=== PATIENT | female | born 1970 | race Caucasian/White ===

== ENCOUNTER 2017-02-17 14:12 | Outpatient (CLI) | payer MEDICARE ==
[2017-02-17 15:17] VITALS: BMI 22.3
[2017-02-17 15:30] LABS: % SATURATION 2 % (15-55); IRON 7 ug/dl (35-150); TOTAL IRON BIND CAPACITY 339 ug/dl (260-445); UNSAT IRON BIND CAPACITY 332 ug/dl (150-375)
[2017-02-17 15:46] LABS: FERRITIN 3 ng/mL (3-244); LDH 127 U/L (81-234)
--- NOTE | 2017-02-17 16:24 | NUR ---
1545-IV SITED TO LEFT HAND X 1 20 ANGIOCATH. 1610-BLOOD TRANSFUSION 1ST UNIT UP TO INFUSE AT 100CC/HR PER PUMP. 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
--- NOTE | 2017-02-17 17:28 | NUR ---
1610 1ST UNIT BLOOD CHECKED AT BEDSIDE BY THIS NURSE AND ERROL PINEDO RN, INITATED BY ALARIS PUMP AT 50/CC/HR. DATASCOPE MONITORING. SPOUSE AT SIDE. CALL LIGHT AT BEDSIDE. 1625. DENIES PROBLEMS, IV PATENT. RATE INCREASED TO 125/CC/HR. 1640 DENIES PROBLEMS, RATE INCREASED TO 200/CC/HR 1710 SUPPER SERVED. BLOOD GOING WELL. DENIES PROBLEMS.
--- NOTE | 2017-02-17 18:10 | NUR ---
1809 ATE 100% REG DIET. BLOOD GOING WELL, NEAR COMPLETEION, SPOUSE AT SIDE.
--- NOTE | 2017-02-17 18:45 | NUR ---
182 1ST UNIT BLOOD COMPLETED LINE BEING FLUSHED WITH NS 1834 2ND UNIT BLOOD CHECKED AT BEDSIDE BY THIS NURSE AND KHUSHBOO BELTRAN RN, INITIATED BY ALARIS PUMP AT 50/CC/HR. SPOUSE AT SIDE. IV SITE PATENT.
--- NOTE | 2017-02-17 18:59 | NUR ---
1849 DENIES PROBLEMS, IV SITE PATENT, RATE INCREASED TO 150/CC/HR.
--- NOTE | 2017-02-17 19:15 | NUR ---
1904 IV SITE PATENT, DENIES PROBLEMS, RATE INCREASED TO 225/CC/HR.
--- NOTE | 2017-02-17 20:12 | NUR ---
1934 LEFT HAND/ARM LARGER THAN RIGHT ARM. PT. DENIES PAIN. BLOOD STOPPED. [facility] FOR [facility] FOR DR. ARGUELLO, CALLED REPORTED, IV SITE PATENT RESITED TO RIGHT ARM WITH 20G JELCO. PT. LAYING ON LEFT SIDE, I ASKED PT TO TURN OFF LEFT SIDE. 2015 REPORT PHONED TO ANIBAL ESPINOSA, TO 2231 BY WC.
[2017-02-18 10:26] LABS: PATH REVIEW PERIPHERAL SMEAR REVIEWED
== END 2017-02-17 21:45 | disposition home or self-care (01) ==
LOC: D.OPS 14:12 → D.MS 20:20
PROVIDERS: Family Medicine
DX: D58.2 Other hemoglobinopathies (principal)

== ENCOUNTER → 2017-06-03 12:53 | Outpatient (CLI) | payer MEDICARE | END | disposition home or self-care (01) | LOC: D.MAMMO 11:00 | DX: Z12.31 Encounter for screening mammogram for malignant neoplasm of breast (principal) ==

== ENCOUNTER → 2017-07-02 16:44 | Outpatient (CLI) | payer MEDICARE | END | disposition home or self-care (01) | LOC: D.MAMMO 09:30 | DX: R92.8 Other abnormal and inconclusive findings on diagnostic imaging of breast (principal) ==

== ENCOUNTER → 2018-01-12 16:53 | Outpatient (CLI) | payer MEDICARE ==
[~2018-01-12 16:53] MED LIST: HYDROCODONE-APA1 TAB PO; LEVOTHYROXINE112 MCG PO; OMEPRAZOLE20 M1 PO
== END | disposition home or self-care (01) ==
LOC: D.MAMMO 13:30
DX: R92.8 Other abnormal and inconclusive findings on diagnostic imaging of breast (principal)

== ENCOUNTER → 2018-01-20 07:40 | Outpatient (CLI) | payer MEDICARE | END | disposition home or self-care (01) | LOC: D.CT 07:40 | DX: R16.0 Hepatomegaly, not elsewhere classified (principal) ==

== ENCOUNTER 2018-01-26 06:51 | Outpatient (CLI) | payer BC ==
[~2018-01-26] VITALS: Ht 163.8 cm; Wt 55.0 kg
[2018-01-26 07:50] LABS: BASOPHILS 0.2 % (0-2); EOSINOPHILS 4.1 % (0-7); HEMOGLOBIN 10.7 g/dL (12-16); IMMATURE GRANULOCYTES 0.2 % (0-5); LYMPHOCYTES 11.9 % (15-50); MCHC 28.9 g/dL (31.0-37.0); MCV 83.1 fL (80.0-100.0); MEAN PLATELET VOLUME 9.4 fL (7.4-10.4); NEUTROPHILS 75.6 % (40-80); PLATELET COUNT 277 10x3/uL (130-400); RBC 4.45 10x6/uL (4.00-5.40); RDW 16.4 % (11.5-14.5); WBC 6.3 10x3/uL (4.8-10.8)
[2018-01-26 08:02] LABS: CALC OSMOLALITY 278 mosm/kg (275-300); CALCIUM 8.8 mg/dL (8.5-10.1); CARBON DIOXIDE 29.1 mmol/L (21.0-32.0); CHLORIDE - SERUM 104 mmol/L (98-107); CREATININE - SERUM 0.7 mg/dL (0.6-1.3); GLUCOSE 88 mg/dL (74-106); POTASSIUM - SERUM 3.7 mmol/L (3.5-5.1); SODIUM 141 mmol/L (136-145); UREA NITROGEN 10 mg/dL (7-18); eGFR NON AFRICAN AMERICAN > 90 mL/min (90-120)
[2018-01-26 08:12] LABS: APTT 31.3 SECONDS (22.8-39.4); INR 1.14 (0.85-1.17); PROTIME 14.2 SECONDS (11.6-15.0)
[2018-01-26] MEDS ORDERED: OMEPRAZOLE20 M1 PO (08:28)
[2018-01-26] MEDS ORDERED: LEVOTHYROXINE112 MCG PO (08:29)
[2018-01-26 08:33] VITALS: BP 135/89; Ht 163.8 cm; Wt 55.0 kg
== END 2018-01-26 14:45 | disposition home or self-care (01) ==
LOC: D.OPS 06:51 → D.CT 09:00 → D.OPS 09:30
PROVIDERS: Radiology Diagnostic Radiology
DX: R16.0 Hepatomegaly, not elsewhere classified (principal); Z88.0 Allergy status to penicillin; C16.9 Malignant neoplasm of stomach, unspecified; Z01.812 Encounter for preprocedural laboratory examination

== ENCOUNTER 2018-02-11 06:40 | Day surgery (SDC) | payer MEDICARE ==
[~2018-02-11] VITALS: Ht 163.8 cm; Wt 51.7 kg
--- NOTE | ~2018-02-11 | OP ---
PATIENT NAME: RAE BLANK MEDICAL RECORD: [id number] :68 LOCATION:D.OPS ADMISSION DATE: SURGEON: JOSE JOINER MD DATE OF OPERATION: 02/11/2018 PREOPERATIVE DIAGNOSES: 1. Undifferentiated malignancy. 2. Anemia. POSTOPERATIVE DIAGNOSES: 1. Undifferentiated malignancy. 2. Anemia. PROCEDURE: 1. Left subclavian vein port placement. 2. Fluoroscopic interpretation. SURGEON: Jose Joiner MD REPORT OF PROCEDURE: The patient's chest was prepped and draped in sterile fashion. A needle was used to cannulate the left subclavian vein and a guidewire was advanced with ease. Fluoro was used to note that the wire was in good position in the venous system. A skin incision was made on the left superior lateral chest and a subcutaneous pouch was made over the pectoral fascia. A catheter was tunneled between this pouch and the wire exit site. The port was then sutured to the pectoral fascia using interrupted 4-0 Prolene. The catheter was cut with a beveled tip at 19 cm. The dilator trocar device was placed over the wire and the wire and dilator were removed. The catheter tip was advanced through the trocar and the trocar was removed. The catheter tips were noted to be resting in good position at the superior vena cava, this aspirated nonpulsatile dark blood and flushed easily with heparinized saline. The subcutaneous tissues were reapproximated with interrupted 3-0 Vicryls and the skin was closed with running subcutaneous 5-0 Monocryl. A 10 mL of 0.25% Marcaine with epinephrine was infused into the surrounding tissues and the wound was dressed appropriately. COMPLICATIONS: None. CONDITION: Stable. ANESTHESIA: General endotracheal and local. BLOOD LOSS: Minimal. TRANSINT:[id number] Voice Confirmation ID: [id number] DOCUMENT ID: [id number] JOSE JOINER MD at 1413 CC: SEAN GARCIA MD and EDIE ARGUELLO MD [id number] DICTATION DATE: 02/11/18 1113 [facility]ER: 02/11/18 1252 [facility] 02/11/18 [facility] [address] [place] [id number]
[~2018-02-11 06:40] MED LIST changes: -HYDROCODONE-APA1 TAB PO
[2018-02-11 07:36] VITALS: BP 143/99; Ht 163.8 cm; Wt 51.7 kg
[2018-02-11] MEDS ORDERED: HYDROCODONE-APA1 TAB PO (11:07)
== END 2018-02-11 12:55 | disposition home or self-care (01) ==
LOC: D.OPS 06:40
DX: C80.1 Malignant (primary) neoplasm, unspecified (principal); D64.9 Anemia, unspecified; Z01.812 Encounter for preprocedural laboratory examination

== ENCOUNTER → 2018-12-27 15:43 | Outpatient (CLI) | payer MEDICARE ==
[2018-02-11 07:36] VITALS: BMI 19.3
[~2018-12-27 15:43] MED LIST changes: +HYDROCODONE-APA1 TAB PO
[2018-12-27 18:04] LABS: BASOPHILS 0.3 % (0-2); EOSINOPHILS 0.2 % (0-7); LYMPHOCYTES 9.7 % (15-50); MCH 30.8 pg (26.0-34.0); MCHC 30.4 g/dL (31.0-37.0); MCV 101.3 fL (80.0-100.0); MEAN PLATELET VOLUME 9.8 fL (7.4-10.4); NEUTROPHILS 76.8 % (40-80); RBC 2.37 10x6/uL (4.00-5.40); RDW 23.8 % (11.5-14.5); WBC 5.9 10x3/uL (4.8-10.8)
[2018-12-27 18:18] LABS: ALBUMIN 1.6 g/dL (3.4-5.0); ALKALINE PHOSPHATASE 168 U/L (46-116); ALT (SGPT) 16 U/L (10-68); BILIRUBIN - TOTAL 0.32 mg/dL (0.2-1.3); CALC OSMOLALITY 277 mosm/kg (275-300); CHLORIDE - SERUM 109 mmol/L (98-107); CREATININE - SERUM 0.4 mg/dL (0.6-1.3); GLUCOSE 71 mg/dL (74-106); MAGNESIUM - SERUM 1.6 mg/dL (1.8-2.4); PHOSPHOROUS 2.8 mg/dL (2.5-4.9); POTASSIUM - SERUM 3.6 mmol/L (3.5-5.1); SODIUM 140 mmol/L (136-145); UREA NITROGEN 16 mg/dL (7-18); eGFR NON AFRICAN AMERICAN > 90 mL/min (90-120)
[2018-12-27 19:30] LABS: HEMOGLOBIN 7.3 g/dL (12-16); PLATELET COUNT 149 10x3/uL (130-400)
[2018-12-27 19:31] LABS: CALCIUM 6.3 mg/dL (8.5-10.1)
== END | disposition home or self-care (01) ==
LOC: D.LABREF 15:43
PROVIDERS: Internal Medicine Gastroenterology
DX: E46 Unspecified protein-calorie malnutrition (principal); E87.6 Hypokalemia

== ENCOUNTER → 2019-01-09 16:12 | Outpatient (CLI) | payer MEDICARE ==
[2018-02-11 07:36] VITALS: BMI 19.3
[2019-01-09 19:15] LABS: HEMATOCRIT 23.6 % (36.0-48.0); MCH 31.4 pg (26.0-34.0); MCHC 30.5 g/dL (31.0-37.0); MCV 103.1 fL (80.0-100.0); MEAN PLATELET VOLUME 9.8 fL (7.4-10.4); PLATELET COUNT 144 10x3/uL (130-400); RBC 2.29 10x6/uL (4.00-5.40); RDW 20.6 % (11.5-14.5)
[2019-01-09 19:34] LABS: ALBUMIN 1.9 g/dL (3.4-5.0); ALKALINE PHOSPHATASE 577 U/L (46-116); ALT (SGPT) 26 U/L (10-68); BILIRUBIN - TOTAL 0.51 mg/dL (0.2-1.3); CALC OSMOLALITY 278 mosm/kg (275-300); CALCIUM 7.7 mg/dL (8.5-10.1); CARBON DIOXIDE 27.9 mmol/L (21.0-32.0); CHLORIDE - SERUM 103 mmol/L (98-107); CREATININE - SERUM 0.4 mg/dL (0.6-1.3); GLUCOSE 93 mg/dL (74-106); MAGNESIUM - SERUM 1.8 mg/dL (1.8-2.4); PHOSPHOROUS 3.5 mg/dL (2.5-4.9); POTASSIUM - SERUM 3.9 mmol/L (3.5-5.1); PRE-ALBUMIN 9.7 mg/dL (18.0-35.7); PROTEIN - SERUM 4.7 g/dL (6.4-8.2); SODIUM 138 mmol/L (136-145); UREA NITROGEN 21 mg/dL (7-18); eGFR NON AFRICAN AMERICAN > 90 mL/min (90-120)
[2019-01-09 21:07] LABS: HEMOGLOBIN 7.2 g/dL (12-16)
[2019-01-09 22:12] LABS: EOSINOPHILS 3 % (0-7); LYMPHOCYTES 33 % (15-50); NEUTROPHILS 63 % (40-80); PLATELET ESTIMATE NORMAL
== END | disposition home or self-care (01) ==
LOC: D.LABREF 16:12
PROVIDERS: Family Medicine
DX: C16.9 Malignant neoplasm of stomach, unspecified (principal); E46 Unspecified protein-calorie malnutrition; C78.7 Secondary malignant neoplasm of liver and intrahepatic bile duct; Z51.81 Encounter for therapeutic drug level monitoring; Z79.899 Other long term (current) drug therapy

== ENCOUNTER → 2019-01-24 14:41 | Outpatient (CLI) | payer MEDICARE ==
[2018-02-11 07:36] VITALS: BMI 19.3
[2019-01-24 15:24] LABS: HEMATOCRIT 24.6 % (36.0-48.0); HEMOGLOBIN 7.6 g/dL (12-16); MCH 30.5 pg (26.0-34.0); MCHC 30.9 g/dL (31.0-37.0); MCV 98.8 fL (80.0-100.0); RBC 2.49 10x6/uL (4.00-5.40); RDW 19.1 % (11.5-14.5); WBC 2.3 10x3/uL (4.8-10.8)
[2019-01-24 15:47] LABS: ALBUMIN 3.7 g/dL (3.4-5.0); ALKALINE PHOSPHATASE 666 U/L (46-116); ALT (SGPT) 51 U/L (10-68); BILIRUBIN - TOTAL 0.81 mg/dL (0.2-1.3); CALC OSMOLALITY 279 mosm/kg (275-300); CALCIUM 8.4 mg/dL (8.5-10.1); CARBON DIOXIDE 24.9 mmol/L (21.0-32.0); CHLORIDE - SERUM 104 mmol/L (98-107); CREATININE - SERUM 0.3 mg/dL (0.6-1.3); GLUCOSE 91 mg/dL (74-106); MAGNESIUM - SERUM 1.8 mg/dL (1.8-2.4); PHOSPHOROUS 3.7 mg/dL (2.5-4.9); POTASSIUM - SERUM 3.9 mmol/L (3.5-5.1); PROTEIN - SERUM 6.6 g/dL (6.4-8.2); SODIUM 139 mmol/L (136-145); UREA NITROGEN 18 mg/dL (7-18); eGFR NON AFRICAN AMERICAN > 90 mL/min (90-120)
[2019-01-24 15:57] LABS: PLATELET COUNT 205 10x3/uL (130-400)
[2019-01-24 17:52] LABS: EOSINOPHILS 2 % (0-7); LYMPHOCYTES 44 % (15-50); MONOCYTES 9 % (2-11); NEUTROPHILS 45 % (40-80); PLATELET ESTIMATE NORMAL
== END | disposition home or self-care (01) ==
LOC: D.LABREF 14:41
PROVIDERS: ATTEND Family Medicine
DX: C16.9 Malignant neoplasm of stomach, unspecified (principal); C78.7 Secondary malignant neoplasm of liver and intrahepatic bile duct; E78.6 Lipoprotein deficiency

== ENCOUNTER → 2019-02-07 15:51 | Outpatient (CLI) | payer MEDICARE ==
[2018-02-11 07:36] VITALS: BMI 19.3
[2019-02-07 16:38] LABS: BASOPHILS 0.2 % (0-2); EOSINOPHILS 0.7 % (0-7); HEMATOCRIT 29.5 % (36.0-48.0); HEMOGLOBIN 8.8 g/dL (12-16); LYMPHOCYTES 8.7 % (15-50); MCH 30.7 pg (26.0-34.0); MCHC 29.8 g/dL (31.0-37.0); MCV 102.8 fL (80.0-100.0); MONOCYTES 7.9 % (2-11); NEUTROPHILS 81.5 % (40-80); PLATELET COUNT 231 10x3/uL (130-400); RBC 2.87 10x6/uL (4.00-5.40); RDW 19.9 % (11.5-14.5)
[2019-02-07 16:56] LABS: ALBUMIN 3.7 g/dL (3.4-5.0); ALKALINE PHOSPHATASE 489 U/L (46-116); ALT (SGPT) 62 U/L (10-68); BILIRUBIN - TOTAL 0.98 mg/dL (0.2-1.3); CALC OSMOLALITY 282 mosm/kg (275-300); CALCIUM 8.8 mg/dL (8.5-10.1); CARBON DIOXIDE 25.3 mmol/L (21.0-32.0); CHLORIDE - SERUM 102 mmol/L (98-107); CREATININE - SERUM 0.4 mg/dL (0.6-1.3); GLUCOSE 76 mg/dL (74-106); MAGNESIUM - SERUM 1.9 mg/dL (1.8-2.4); PHOSPHOROUS 4.6 mg/dL (2.5-4.9); PROTEIN - SERUM 6.6 g/dL (6.4-8.2); SODIUM 139 mmol/L (136-145); UREA NITROGEN 29 mg/dL (7-18); eGFR NON AFRICAN AMERICAN > 90 mL/min (90-120)
[2019-02-07 16:58] LABS: PRE-ALBUMIN 17.1 mg/dL (18.0-35.7)
== END | disposition home or self-care (01) ==
LOC: D.LABREF 15:51
PROVIDERS: ATTEND Family Medicine
DX: C16.9 Malignant neoplasm of stomach, unspecified (principal); E87.6 Hypokalemia; C78.7 Secondary malignant neoplasm of liver and intrahepatic bile duct

== ENCOUNTER → 2019-02-21 13:11 | Outpatient (CLI) | payer MEDICARE ==
[2018-02-11 07:36] VITALS: BMI 19.3
[2019-02-21 13:34] LABS: HEMATOCRIT 32.2 % (36.0-48.0); HEMOGLOBIN 9.8 g/dL (12-16); MCH 30.4 pg (26.0-34.0); MCHC 30.4 g/dL (31.0-37.0); MEAN PLATELET VOLUME 9.8 fL (7.4-10.4); PLATELET COUNT 238 10x3/uL (130-400); RBC 3.22 10x6/uL (4.00-5.40); RDW 17.8 % (11.5-14.5)
[2019-02-21 13:42] LABS: ALBUMIN 3.1 g/dL (3.4-5.0); ALKALINE PHOSPHATASE 443 U/L (46-116); ALT (SGPT) 54 U/L (10-68); CALC OSMOLALITY 274 mosm/kg (275-300); CALCIUM 9.1 mg/dL (8.5-10.1); CARBON DIOXIDE 27.5 mmol/L (21.0-32.0); CHLORIDE - SERUM 103 mmol/L (98-107); CREATININE - SERUM 0.5 mg/dL (0.6-1.3); GLUCOSE 93 mg/dL (74-106); MAGNESIUM - SERUM 1.8 mg/dL (1.8-2.4); PHOSPHOROUS 4.4 mg/dL (2.5-4.9); POTASSIUM - SERUM 3.6 mmol/L (3.5-5.1); PRE-ALBUMIN 16.4 mg/dL (18.0-35.7); PROTEIN - SERUM 7.1 g/dL (6.4-8.2); SODIUM 136 mmol/L (136-145); UREA NITROGEN 20 mg/dL (7-18); eGFR NON AFRICAN AMERICAN > 90 mL/min (90-120)
[2019-02-21 14:00] LABS: WBC 1.4 10x3/uL (4.8-10.8)
[2019-02-21 14:08] LABS: PLATELET ESTIMATE NORMAL
[2019-02-21 14:09] LABS: EOSINOPHILS 4 % (0-7); MONOCYTES 10 % (2-11); PLATELET MORPHOLOGY NORMAL PLT MORPH
[2019-02-21 14:11] LABS: LYMPHOCYTES 40 % (15-50); NEUTROPHILS 46 % (40-80)
== END | disposition home or self-care (01) ==
LOC: D.LABREF 13:11
PROVIDERS: ATTEND Family Medicine
DX: C16.9 Malignant neoplasm of stomach, unspecified (principal)

== ENCOUNTER → 2019-03-07 15:41 | Outpatient (CLI) | payer MEDICARE ==
[2018-02-11 07:36] VITALS: BMI 19.3
[2019-03-07 17:28] LABS: BASOPHILS 0.2 % (0-2); EOSINOPHILS 1.9 % (0-7); HEMATOCRIT 32.7 % (36.0-48.0); HEMOGLOBIN 10.2 g/dL (12-16); IMMATURE GRANULOCYTES 0.5 % (0-5); LYMPHOCYTES 20.6 % (15-50); MCH 30.3 pg (26.0-34.0); MCHC 31.2 g/dL (31.0-37.0); MEAN PLATELET VOLUME 10.4 fL (7.4-10.4); MONOCYTES 10.2 % (2-11); NEUTROPHILS 66.6 % (40-80); PLATELET COUNT 227 10x3/uL (130-400); RBC 3.37 10x6/uL (4.00-5.40); WBC 4.1 10x3/uL (4.8-10.8)
[2019-03-07 17:49] LABS: ALBUMIN 3.1 g/dL (3.4-5.0); ALKALINE PHOSPHATASE 419 U/L (46-116); ALT (SGPT) 59 U/L (10-68); BILIRUBIN - TOTAL 0.65 mg/dL (0.2-1.3); CALC OSMOLALITY 284 mosm/kg (275-300); CALCIUM 8.8 mg/dL (8.5-10.1); CARBON DIOXIDE 25.8 mmol/L (21.0-32.0); CHLORIDE - SERUM 107 mmol/L (98-107); CREATININE - SERUM 0.6 mg/dL (0.6-1.3); GLUCOSE 92 mg/dL (74-106); MAGNESIUM - SERUM 1.7 mg/dL (1.8-2.4); PHOSPHOROUS 4.5 mg/dL (2.5-4.9); PRE-ALBUMIN 18.9 mg/dL (18.0-35.7); PROTEIN - SERUM 6.6 g/dL (6.4-8.2); SODIUM 142 mmol/L (136-145); UREA NITROGEN 19 mg/dL (7-18); eGFR NON AFRICAN AMERICAN > 90 mL/min (90-120)
== END | disposition home or self-care (01) ==
LOC: D.LABREF 15:41
PROVIDERS: ATTEND Family Medicine
DX: C16.9 Malignant neoplasm of stomach, unspecified (principal); C78.7 Secondary malignant neoplasm of liver and intrahepatic bile duct; E46 Unspecified protein-calorie malnutrition; C80.1 Malignant (primary) neoplasm, unspecified

== ENCOUNTER → 2019-03-21 12:53 | Outpatient (CLI) | payer MEDICARE ==
[2018-02-11 07:36] VITALS: BMI 19.3
[2019-03-21 14:07] LABS: ALBUMIN 2.9 g/dL (3.4-5.0); ALKALINE PHOSPHATASE 345 U/L (46-116); ALT (SGPT) 55 U/L (10-68); BILIRUBIN - TOTAL 0.42 mg/dL (0.2-1.3); CALC OSMOLALITY 281 mosm/kg (275-300); CALCIUM 8.7 mg/dL (8.5-10.1); CARBON DIOXIDE 26.5 mmol/L (21.0-32.0); CHLORIDE - SERUM 105 mmol/L (98-107); CREATININE - SERUM 0.5 mg/dL (0.6-1.3); GLUCOSE 127 mg/dL (74-106); MAGNESIUM - SERUM 1.5 mg/dL (1.8-2.4); PHOSPHOROUS 3.6 mg/dL (2.5-4.9); PRE-ALBUMIN 16.2 mg/dL (18.0-35.7); SODIUM 140 mmol/L (136-145); UREA NITROGEN 16 mg/dL (7-18); eGFR NON AFRICAN AMERICAN > 90 mL/min (90-120)
[2019-03-21 14:51] LABS: HEMATOCRIT 31.6 % (36.0-48.0); HEMOGLOBIN 10.1 g/dL (12-16); MCV 93.8 fL (80.0-100.0); MEAN PLATELET VOLUME 9.5 fL (7.4-10.4); RBC 3.37 10x6/uL (4.00-5.40); RDW 17.3 % (11.5-14.5)
[2019-03-21 14:54] LABS: PLATELET COUNT 277 10x3/uL (130-400); WBC 1.9 10x3/uL (4.8-10.8)
[2019-03-21 16:22] LABS: EOSINOPHILS 7 % (0-7); LYMPHOCYTES 25 % (15-50); MONOCYTES 5 % (2-11); NEUTROPHILS 45 % (40-80); PLATELET ESTIMATE NORMAL
== END | disposition home or self-care (01) ==
LOC: D.LABREF 12:53
PROVIDERS: ATTEND Family Medicine
DX: C16.9 Malignant neoplasm of stomach, unspecified (principal); E87.6 Hypokalemia; C78.7 Secondary malignant neoplasm of liver and intrahepatic bile duct